=== PATIENT | male | born 1970 | race Caucasian/White ===

== ENCOUNTER 2021-06-23 14:20 | Emergency (ER) | payer OTHER ==
[2021-06-23] MEDS ORDERED: Morphine 4 MG/ML VIAL ONE ×3 (15:10→19:52)
[2021-06-23 17:48] LABS: #Basophils 0.1 10x3/uL (0.0-0.2); #Monocytes 0.7 10x3/uL (0.0-1.1); #Neutrophils 6.8 10x3/uL (1.5-8.4); %Basophils 0.8 % (0.0-2.0); %Eosinophils 0.2 % (0.0-6.0); %Lymphocytes 9.9 % (18.0-47.0); %Monocytes 8.7 % (0.0-10.0); %Neutrophils 80.2 % (40.0-75.0); Hemoglobin 11.8 g/dL (13.5-17.5); Mean Corpuscular HGB CONC 33.2 g/dL (32.0-36.0); Mean Corpuscular Hemoglobin 30.3 pg (27.0-33.0); Mean Platelet Volume 10.1 fl (7.4-10.4); Platelet Count 306 10x3/uL (150-450); RBC Distribution Width 13.8 % (11.5-14.5); White Blood Cell (WBC) Count 8.5 10x3/uL (3.5-10.5)
[2021-06-23 18:04] LABS: Anion Gap 13 mmol/L (10-20); BUN (Urea Nitrogen) 7 mg/dL (8.4-25.7); Calc. Creatinine Clearance 0 mL/min (70-130); Calcium 8.7 mg/dL (7.8-10.44); Carbon Dioxide 30 mmol/L (22-29); Chloride 103 mmol/L (98-107); Glucose 95 mg/dL (70-105); Sodium 144 mmol/L (136-145)
[2021-06-23 18:09] LABS: Potassium 2.4 mmol/L (3.5-5.1)
[2021-06-23 18:31] LABS: SARS-CoV-2 NAA Rapid Test Not Detected (NotDetected)
[2021-06-23] MEDS ORDERED: Potassium Chloride 20 MEQ/100 ML PREMIX BAG ONE (18:34)
[2021-06-23] MEDS ORDERED: Potassium Chloride 20 MEQ TAB ONE (18:34)
[2021-06-23] MEDS ORDERED: Ketorolac Tromethamine 30 MG/ML VIAL ONE (19:52)
== END 2021-06-23 21:43 | disposition short-term general hospital (02) ==
LOC: CSHERS 14:20
DX: S72.145A Nondisplaced intertrochanteric fracture of left femur, initial encounter for closed fracture (principal); I10 Essential (primary) hypertension; Z20.822 Contact with and (suspected) exposure to COVID-19; Z79.82 Long term (current) use of aspirin; Z79.899 Other long term (current) drug therapy; W19.XXXA Unspecified fall, initial encounter
CPT/HCPCS: 72170; 80048; 85025; 96365; 96366; 96375; 96376; J1885; J2270; J3480; U0002